=== PATIENT | female | born 1995 | race Caucasian/White ===

== ENCOUNTER → 2017-01-16 | Outpatient (REF) | payer OTHER ==
[~2017-01-16] MED LIST: COLA100C3 PO; IBUP-1114 PO; PERCOCET PO
== END ==
LOC: M SFHCLERA 20:32
PROVIDERS: ATTEND Nurse Practitioner Family
DX: L08.9 Local infection of the skin and subcutaneous tissue, unspecified (principal)

== ENCOUNTER 2017-02-19 21:15 | Emergency (ER) | payer OTHER ==
[~2017-02-19] VITALS: Ht 170.2 cm; Wt 108.9 kg
[~2017-02-19 21:15] MED LIST changes: -IBUP80TA PO; -NEXI40GR PO; -ROBA500T PO; -ZOLO50TA PO; -atarax PO
[2017-02-19] MEDS ORDERED: NEXI40GR PO (21:24)
[2017-02-19] MEDS ORDERED: ZOLO50TA PO (21:24)
[2017-02-19] MEDS ORDERED: atarax PO (21:24)
[2017-02-19] MEDS ORDERED: ROBA500T PO (23:12)
[2017-02-19] MEDS ORDERED: IBUP80TA PO (23:12)
[2017-02-19] MEDS ORDERED: KETOROLAC 60 MG/2 ML VIAL (J1885) IM ONE (23:15)
[2017-02-19] MEDS ORDERED: METHOCARBAMOL 500 MG TAB PO ONE (23:15)
[2017-02-19 23:55] VITALS: BP 110/65
== END 2017-02-19 23:56 | disposition home or self-care (01) ==
LOC: M ED 22:18
DX: R07.89 Other chest pain (principal); F33.9 Major depressive disorder, recurrent, unspecified; K21.9 Gastro-esophageal reflux disease without esophagitis; Z79.899 Other long term (current) drug therapy; F17.210 Nicotine dependence, cigarettes, uncomplicated
CPT/HCPCS: 71020; 87086; 96372; 99282; J1885

== ENCOUNTER → 2017-02-19 | Outpatient (REF) | payer OTHER ==
[~2017-02-19] MED LIST changes: +IBUP80TA PO; +NEXI40GR PO; +ROBA500T PO; +ZOLO50TA PO; +atarax PO
== END ==
LOC: M SFHCLERA 18:33
PROVIDERS: ATTEND Nurse Practitioner Family
DX: R10.11 Right upper quadrant pain (principal)

== ENCOUNTER → 2017-02-19 | Outpatient (CLI) | payer OTHER ==
--- NOTE | 2017-02-19 18:05 | REP ---
Chest x-ray: Three views. History: And pain on the right side. . Comparison study: No comparison study . Findings: The lungs are well inflated and free of infiltrate. The pleural angles are sharp. The heart size is normal. Pulmonary vasculature is not increased. No significant bony abnormality is seen. Impression: Negative chest x-ray. Signed by Humza Davis MD 02/19/2017 05:56 P
== END ==
LOC: M LRY 17:35
PROVIDERS: ATTEND Nurse Practitioner Family
DX: R07.81 Pleurodynia (principal)

== ENCOUNTER → 2017-04-10 | Outpatient (CLI) | payer OTHER ==
[~2017-04-10] MED LIST changes: +CEFD1CAP8 PO; -COLA100C3 PO; +COLA100C5 PO; +DICL75TA PO; +HYDR-3363 PO; +IBUP80TA PO; +NEXI40GR PO; +ROBA500T PO; +SERT25TA88 PO; +TIZA4CAP3 PO; +ZOLO50TA PO; +atarax PO
--- NOTE | 2017-04-10 20:01 | REP ---
Clinical: Lower back pain . Technique: AP, lateral, bilateral oblique, and coned-down views. Findings: Alignment and lordosis is maintained. The vertebral bodies including transverse process and spinous processes are intact and normal. There is no evidence for acute fracture / compression injury or subluxation. No evidence for spondylolysis or spondylolisthesis. No significant degenerative change is noted. Impression: Normal lumbosacral spine radiograph series. Signed by Caesar Corey MD 04/10/2017 07:53 P
== END ==
LOC: M LRY 19:28
PROVIDERS: ATTEND Physician Assistant
DX: M54.41 Lumbago with sciatica, right side (principal)
CPT/HCPCS: 72110; 96372; G0463; J1885

== ENCOUNTER 2017-04-13 20:49 | Emergency (ER) | payer OTHER ==
[~2017-04-13] VITALS: Ht 170.2 cm; Wt 110.0 kg
[2017-04-13 20:49] VITALS: BP 100/56
[~2017-04-13 20:49] MED LIST changes: -CEFD1CAP8 PO; -DICL75TA PO; -HYDR-3363 PO; -SERT25TA88 PO; -TIZA4CAP3 PO
[2017-04-13] MEDS ORDERED: DICL75TA PO (21:03)
[2017-04-13] MEDS ORDERED: HYDR-3363 PO (21:03)
[2017-04-13] MEDS ORDERED: SERT25TA88 PO (21:03)
[2017-04-13] MEDS ORDERED: TIZA4CAP3 PO (21:03)
[2017-04-13] MEDS ORDERED: NORCO 5/325MG TABLET (BULK FOR ED) PO ONE (21:30)
== END 2017-04-13 21:27 | disposition home or self-care (01) ==
LOC: M ED 20:49
DX: M54.17 Radiculopathy, lumbosacral region (principal); M54.41 Lumbago with sciatica, right side; F33.9 Major depressive disorder, recurrent, unspecified; F41.9 Anxiety disorder, unspecified; K21.9 Gastro-esophageal reflux disease without esophagitis; Z79.899 Other long term (current) drug therapy; F17.210 Nicotine dependence, cigarettes, uncomplicated

== ENCOUNTER 2017-04-23 21:15 | Emergency (ER) | payer OTHER ==
[~2017-04-23] VITALS: Ht 170.2 cm; Wt 108.2 kg
[~2017-04-23 21:15] MED LIST changes: +DICL75TA PO; +HYDR-3363 PO; +SERT25TA88 PO; +TIZA4CAP3 PO
[2017-04-23 21:16] VITALS: BP 111/68
[2017-04-23] MEDS ORDERED: CEFD1CAP8 PO (21:41)
[2017-04-23] MEDS ORDERED: CEFDINIR 300 MG CAP (OMNICEF) PO ONE (21:45)
== END 2017-04-23 22:00 | disposition home or self-care (01) ==
LOC: M ED 21:15
DX: J02.0 Streptococcal pharyngitis (principal)